=== PATIENT | male | born 1950 | race Caucasian/White ===

== ENCOUNTER 2016-11-22 19:53 | Emergency (ER) | payer BC, OTHER ==
[2016-11-22 20:07] VITALS: BP 155/66; PULSE 101; TEMP 99; BMI 35.4
[2016-11-22] MEDS ORDERED: SODIUM CHLORIDE 1,000 ML IV STA (20:41)
[2016-11-22] MEDS ORDERED: morphine CARPU-JECT 4 MG/1 ML DISP.SYRIN IVPUSH ONE (20:41)
--- NOTE | 2016-11-22 20:41 | PDOC ---
History of Present Illness - History of Present Illness Initial Comments: 11/22/16 20:47 The patient is a 66 year old male, with a significant past medical history of, who presents to the emergency department with rectal pain and nausea for about two days. The patient reports he has not eaten in 1.5 days and has been avoiding moving bowels because of his rectal pain. He denies blood per rectum. He denies use of laxatives or stool softeners. The patient states he is, however , passing gas from below. He states he feels nauseous but denies emesis. He denies chest pain, shortness of breath, headache and dizziness. He denies fever, chills, vomit, diarrhea and constipation. He denies dysuria, frequency, urgency and hematuria. Allergies: NKDA Past surgical history: naval hernia repair Social history: Pt denies toxic habits <Rupali Armas - Last Filed: 11/22/16 21:33> <Ratna Khan - Last Filed: 11/23/16 03:55> <Khadra Crawford - Last Filed: 11/25/16 08:42> - General Chief Complaint: Pain Stated Complaint: PAIN Time Seen by Provider: 11/22/16 20:18 Past History <Rupali Armas - Last Filed: 11/22/16 21:33> <Ratna Khan - Last Filed: 11/23/16 03:55> - Past Medical History Diabetes: Yes HTN: Yes Hypercholesterolemia: Yes - Surgical History Abdominal Surgery: Yes (Hernia) - Suicide/Smoking/Psychosocial Hx Smoking History: Never smoked Have you smoked in the past 12 months: No Information on smoking cessation initiated: No Hx Alcohol Use: No Drug/Substance Use Hx: No Substance Use Type: None <Khadra Crawford - Last Filed: 11/25/16 08:42> - Past Medical History Allergies/Adverse Reactions: Allergies Allergy/AdvReac Type Severity Reaction Status Date / Time No Known Allergies Allergy Verified 11/24/16 09:40 Home Medications: Ambulatory Orders Aspirin [ASA -] 81 mg PO DAILY 11/22/16 Canagliflozin [Invokana] 300 mg PO DAILY 11/22/16 Diclofenac Sodium [Diclozor] 100 mg PO TID 11/22/16 Dulaglutide [Trulicity] 0.75 units SQ WEEKLY 11/22/16 Insulin Aspart Prot/Insuln Asp [Novolog Mix 70-30 Flexpen Syrn] 25 units SQ TID 11/22/16 Quinapril HCl [Accupril -] 10 mg PO DAILY 11/22/16 Rosuvastatin Calcium [Crestor] 40 mg PO DAILY 11/22/16 Amoxicillin/Potassium Clav [Augmentin 875-125 Tablet] 1 each PO BID #14 tablet 11/23/16 Docusate Sodium [Colace -] 100 mg PO BID #14 capsule 11/23/16 Oxycodone HCl/Acetaminophen [Percocet 5/325 -] 1 tab PO Q6H #20 tablet MDD 4 11/01 Review of Systems - Review of Systems Able to Perform ROS?: Yes Comments:: 11/22/16 20:47 GENERAL/CONSTITUTIONAL: No fever or chills. No weakness. HEAD, EYES, EARS, NOSE AND THROAT: No change in vision. No ear pain or discharge. No sore throat. CARDIOVASCULAR: No chest pain or shortness of breath. RESPIRATORY: No cough, wheezing, or hemoptysis. GASTROINTESTINAL: (+) rectal pain, nausea, No vomiting, diarrhea or constipation. GENITOURINARY: No dysuria, frequency, or change in urination. MUSCULOSKELETAL: No joint or muscle swelling or pain. No neck or back pain. SKIN: No rash NEUROLOGIC: No headache, vertigo, loss of consciousness, or change in strength/ sensation. ENDOCRINE: No increased thirst. No abnormal weight change. HEMATOLOGIC/LYMPHATIC: No anemia, easy bleeding, or history of blood clots. ALLERGIC/IMMUNOLOGIC: No hives or skin allergy. <Rupali Armas - Last Filed: 11/22/16 21:33> *Physical Exam - Vital Signs Last Vital Signs Temp Pulse Resp BP Pulse Ox 99.0 F 101 H 20 155/66 98 11/22/16 20:04 11/22/16 20:04 11/22/16 20:04 11/22/16 20:04 11/22/16 20:04 <Rupali Armas - Last Filed: 11/22/16 21:33> - Vital Signs Last Vital Signs Temp Pulse Resp BP Pulse Ox 99.0 F 101 H 20 155/66 98 11/22/16 20:04 11/22/16 20:04 11/22/16 20:04 11/22/16 20:04 11/22/16 20:04 <Ratna chaudhry - Last Filed: 11/23/16 03:55> - Vital Signs Last Vital Signs Temp Pulse Resp BP Pulse Ox 99.0 F 101 H 20 155/66 98 11/22/16 20:04 11/22/16 20:04 11/22/16 20:04 11/22/16 20:04 11/22/16 20:04 - Physical Exam Comments: GENERAL: Awake, alert, and fully oriented, in no acute distress HEAD: No signs of trauma EYES: PERRLA, EOMI, sclera anicteric, conjunctiva clear ENT: Auricles normal inspection, hearing grossly normal, nares patent, oropharynx clear without exudates. Moist mucosa NECK: Normal ROM, supple, no lymphadenopathy, JVD, or masses LUNGS: Breath sounds equal, clear to auscultation bilaterally. No wheezes, and no crackles HEART: Regular rate and rhythm, normal S1 and S2, no murmurs, rubs or gallops ABDOMEN: Soft, nontender, normoactive bowel sounds. No guarding, no rebound. No masses EXTREMITIES: Normal range of motion, no edema. No clubbing or cyanosis. No cords, erythema, or tenderness NEUROLOGICAL: Cranial nerves II through XII grossly intact. Normal speech, normal gait SKIN: Warm, Dry, normal turgor, no rashes or lesions noted. RECTAL: +Induration at the 1 o'clock position, with tenderness and fluctuant lesion. <Khadra Crawford - Last Filed: 11/25/16 08:42> ED Treatment Course - LABORATORY CBC & Chemistry Diagram: 11/22/16 21:20 11/22/16 21:20 - ADDITIONAL ORDERS Additional order review: Laboratory Results 11/22/16 11/22/16 11/22/16 21:20 21:20 21:20 PT with INR 14.40 H INR 1.30 H Sodium 135 L Potassium 4.5 Chloride 104 Carbon Dioxide 23 Anion Gap 8 BUN 22 H Creatinine 0.9 Creat Clearance w eGFR > 60 Random Glucose 180 H Calcium 8.6 Total Bilirubin 0.9 AST 27 ALT 35 Alkaline Phosphatase 67 Total Protein 7.0 Albumin 3.5 Blood Type A POSITIVE Antibody Screen Negative 11/22/16 21:20 RBC 4.56 MCV 87.8 MCHC 33.3 RDW 13.6 MPV 8.5 Neutrophils % 78.8 Lymphocytes % 12.9 Monocytes % 7.7 Eosinophils % 0.3 Basophils % 0.3 - Medications Given in the ED: ED Medications Discontinued Medications Generic Name Dose Route Start Last Admin Trade Name Charles PRN Reason Stop Dose Admin Sodium Chloride 1,000 mls @ 1,000 mls/hr 11/22/16 20:41 11/22/16 21:30 Normal Saline - IV 11/22/16 21:40 1,000 mls/hr ASDIR STA Administration Ampicillin Sodium/Sulbactam 100 mls @ 200 mls/hr 11/23/16 01:52 11/23/16 02:26 Sodium 3 gm/ Sodium Chloride IVPB 11/23/16 02:21 200 mls/hr ONCE ONE Administration Morphine Sulfate 4 mg 11/22/16 20:41 11/22/16 21:30 Morphine Injection - IVPUSH 11/22/16 20:42 4 mg ONCE ONE Administration <Ratna Khan - Last Filed: 11/23/16 03:55> - LABORATORY CBC & Chemistry Diagram: 11/22/16 21:20 11/22/16 21:20 <Khadra Crawford - Last Filed: 11/25/16 08:42> Medical Decision Making - Medical Decision Making 11/22/16 21:33 Dr. Sanon, general surgery, was consulted and presents at patient bedside. <Rupali Armas - Last Filed: 11/22/16 21:33> - Medical Decision Making 11/23/16 02:01 Pt endorsed to at shift change. Dr. Sanon has been consulted, she is currently in OR with another case and will return shortly. Abx have been ordered. <Khadra Crawford - Last Filed: 11/25/16 08:42> *DC/Admit/Observation/Transfer - Attestations Scribe Attestion: 11/22/16 20:48 Documentation prepared by Rupali Armas, acting as medical office secretary for Khadra Crawford MD, <Rupali Armas - Last Filed: 11/22/16 21:33> - Discharge Dispostion Admit: No <Ratna Khan - Last Filed: 11/23/16 03:55> <Khadra Crawford - Last Filed: 11/25/16 08:42> Diagnosis at time of Disposition: Perirectal abscess - Discharge Dispostion Disposition: HOME Condition at time of disposition: Improved - Prescriptions Prescriptions: Amoxicillin/Potassium Clav [Augmentin 875-125 Tablet] 1 each PO BID #14 tablet Docusate Sodium [Colace -] 100 mg PO BID #14 capsule Oxycodone HCl/Acetaminophen [Percocet 5/325 -] 1 tab PO Q6H #20 tablet MDD 4 - Referrals Referrals: Sylwia Schofield MD [Primary Care Provider] - - Patient Instructions Printed Discharge Instructions: DI for Anal Abscess Additional Instructions: Follow up with Dr. Sanon in 1 week. Call for an appointment. [phone] Avoid aspirin for 1 week. Return to the ER on Wednesday morning for a dressing change. After that you can start Sitz baths with warm soapy water 3 times per day. After the dressing change is done, you can start taking colace to soften stools.
[2016-11-22] MEDS ORDERED: morphine CARPU-JECT 10 MG/1 ML DISP.SYRIN ONE (21:24)
[2016-11-22 21:55] LABS: BASOPHIL 0.3 % (0-2.0); EOSINOPHIL 0.3 % (0-4.5); MCH 29.2 pg (25.7-33.7); MCHC 33.3 g/dl (32.0-35.9); MEAN CELL VOLUME 87.8 fl (80-96); MEAN PLT VOLUME 8.5 fl (7.5-11.1); NEUTROPHILS 78.8 % (42.8-82.8); PLATELET COUNT 174 K/MM3 (134-434); RDW 13.6 % (11.9-15.9); WHITE BLOOD COUNT 11.1 K/mm3 (4.0-10.0)
[2016-11-22 22:09] LABS: INR 1.3 (0.82-1.09); PROTHROMBIN TIME (PATIENT) 14.4 SEC (9.98-11.88)
[2016-11-22 22:26] LABS: ALBUMIN 3.5 g/dl (3.4-5.0); ALK PHOS 67 U/L (45-117); ANION GAP 8 (8-16); BILIRUBIN,TOTAL 0.9 mg/dL (0.2-1.0); CALCIUM 8.6 mg/dL (8.5-10.1); CO2 23 mmol/L (21-32); CREATININE 0.9 mg/dL (0.7-1.3); GLUCOSE,RANDOM 180 mg/dL (74-106); SGOT/AST 27 U/L (15-37); SGPT/ALT 35 U/L (12-78)
[2016-11-23] MEDS ORDERED: AMPICILLIN NA/SULBACTAM NA 3 GM in SODIUM CHLORIDE 100 ML IVPB ONE (01:52)
[2016-11-23] MEDS ORDERED: LIDOCAINE HCL 1%, 10 MG/ML (20ML VIAL) ONE (02:44)
[2016-11-23] MEDS ORDERED: LIDOCAINE 1%/EPI 1:100000 (20 ML MULTI DOSE VIAL) ONE (02:49)
--- NOTE | 2016-11-23 04:34 | CONSULT ---
Consult Consult Specialty:: General Surgery Referred by:: Dr. Crawford Reason for Consultation:: perianal abscess - History of Present Illness Chief Complaint: left posterior perianal pain and swelling, constipation History of Present Illness: 66yo M with HTN, HLD, DM on baby aspirin daily (last on Sat night), began noting anorectal pain 3 days ago, which got "very bad" 2 days ago. It hurts to push, so he has been reluctant to go to the bathroom, and does describe a history of constipation. No diarrhea, no f/c, no n/v, In ER, wbc 11, afebrile, gluc 180. He has difficulty sitting and walking because of the pain. Even urinating causes some perianal pain, secondary to pushing or straining at times. Surgery is consulted for perianal abscess. - History Source History Provided By: Patient Limitations to Obtaining History: No Limitations - Past Medical History Cardio/Vascular: Yes: HTN, Hyperlipdemia Gastrointestinal: Yes: Constipation Endocrine: Yes: Diabetes Mellitus - Past Surgical History Past Surgical History: Yes: Hernia Repair (umbilical) - Alcohol/Substance Use Hx Alcohol Use: No History of Substance Use: reports: None - Smoking History Smoking history: Never smoked Have you smoked in the past 12 months: No - Social History Usual Living Arrangement: With Spouse Occupation: lumber stacker driver Home Medications - Allergies Allergies/Adverse Reactions: Allergies Allergy/AdvReac Type Severity Reaction Status Date / Time No Known Allergies Allergy Verified 11/22/16 20:03 - Home Medications Home Medications: Ambulatory Orders Aspirin [ASA -] 81 mg PO DAILY 11/22/16 Canagliflozin [Invokana] 300 mg PO DAILY 11/22/16 Diclofenac Sodium [Diclozor] 100 mg PO TID 11/22/16 Dulaglutide [Trulicity] 0.75 units SQ WEEKLY 11/22/16 Insulin Aspart Prot/Insuln Asp [Novolog Mix 70-30 Flexpen Syrn] 25 units SQ TID 11/22/16 Quinapril HCl [Accupril -] 10 mg PO DAILY 11/22/16 Rosuvastatin Calcium [Crestor] 40 mg PO DAILY 11/22/16 Amoxicillin/Potassium Clav [Augmentin 875-125 Tablet] 1 each PO BID #14 tablet 11/23/16 Docusate Sodium [Colace -] 100 mg PO BID #14 capsule 11/23/16 Oxycodone HCl/Acetaminophen [Percocet 5/325 -] 1 tab PO Q6H #20 tablet MDD 4 11/01 Family Disease History - Family Disease History Family History: Unremarkable Review of Systems - Review of Systems Constitutional: denies: Chills, Fever Eyes: denies: Blurred Vision, Recent Change in Vision HENT: denies: Difficult Swallowing, Throat Pain Neck: denies: Swollen Glands, Tenderness Cardiovascular: denies: Chest Pain, Palpitations Respiratory: denies: Cough, SOB Gastrointestinal: reports: Constipation. denies: Abdominal Pain, Diarrhea, Nausea, Vomiting Genitourinary: reports: Other (hurts anorectum when he pushes to urinate (with hpi)). denies: Burning, Dysuria Musculoskeletal: denies: Back Pain, Joint Pain Integumentary: denies: Change in Color, Rash Neurological: denies: Dizziness, Headache Physical Exam Vital Signs: Vital Signs Temperature 99.0 F 11/22/16 20:04 Pulse Rate 101 H 11/22/16 20:04 Respiratory Rate 20 11/22/16 20:04 Blood Pressure 155/66 11/22/16 20:04 O2 Sat by Pulse Oximetry (%) 98 11/22/16 20:04 Constitutional: Yes: Well Nourished, Calm, Mild Distress, Obese Eyes: Yes: Conjunctiva Clear, EOM Intact HENT: Yes: Atraumatic, Normocephalic Neck: Yes: Supple, Trachea Midline Cardiovascular: Yes: Regular Rate and Rhythm, Murmur (systolic) Respiratory: Yes: Regular, CTA Bilaterally Gastrointestinal: Yes: Soft, Abdomen, Obese, Hernia (periumbilical/recurrent). No: Tenderness ...Rectal Exam: Yes: Inflammation (just left of posterior midline is radial swelling, tender, pink, soft/fluctuant; soft brown stool in anorectum, tender internally secondary to abscess, no purulence), Sphincter Tone Normal. No: Hemorrhoids/External Renal/: No: CVA Tenderness - Left, CVA Tenderness - Right Musculoskeletal: No: Joint Stiffness, Joint Swelling Extremities: No: Cool, Cyanosis Edema: No Peripheral Pulses WNL: Yes Integumentary: No: Jaundice, Rash Neurological: Yes: Alert, Oriented Psychiatric: Yes: Alert, Oriented Labs: CBC, BMP 11/22/16 21:20 11/22/16 21:20 CMP Sodium 135 mmol/L (136-145) L 11/22/16 21:20 Potassium 4.5 mmol/L (3.5-5.1) 11/22/16 21:20 Chloride 104 mmol/L (98-107) 11/22/16 21:20 Carbon Dioxide 23 mmol/L (21-32) 11/22/16 21:20 Anion Gap 8 (8-16) 11/22/16 21:20 BUN 22 mg/dL (7-18) H 11/22/16 21:20 Creatinine 0.9 mg/dL (0.7-1.3) 11/22/16 21:20 Creat Clearance w eGFR > 60 (>60) 11/22/16 21:20 Random Glucose 180 mg/dL (74-106) H 11/22/16 21:20 Calcium 8.6 mg/dL (8.5-10.1) 11/22/16 21:20 Total Bilirubin 0.9 mg/dL (0.2-1.0) 11/22/16 21:20 AST 27 U/L (15-37) 11/22/16 21:20 ALT 35 U/L (12-78) 11/22/16 21:20 Alkaline Phosphatase 67 U/L (45-117) 11/22/16 21:20 Total Protein 7.0 g/dl (6.4-8.2) 11/22/16 21:20 Albumin 3.5 g/dl (3.4-5.0) 11/22/16 21:20 INR, PTT INR 1.30 (0.82-1.09) H 11/22/16 21:20 Problem List - Problems (1) Perianal abscess Assessment/Plan: left posterior perianal abscess wbc 11, afeb, ER gave fluids and Unasyn Discussed with patient risks, benefits and alternatives of incision and drainage of perianal abscess, including but not limited to bleeding, infection, fistula; alternatives include antibiotics, delayed or no surgery - risks of this include failure of nonoperative therapy, sepsis, recurrence, fistula. Patient signed informed consent for procedure. I&D performed under local in ER - see separate note Pus cultured Pt to return to ER Wednesday morning for wound check and packing removal Then to start sitz baths tid and after each BM - warm soapy water, keep wound edges open with fingertips ER to Rx Augmentin x7d and pain meds prn Encouraged stool softener and laxatives prn, especially while using narcotics Pt given my card - to call and follow up Saturday 12/02 Thank you for the opportunity to participate in the care of this patient. Code(s): K61.0 - ANAL ABSCESS (2) Diabetes mellitus type 2, controlled, with complications Code(s): E11.8 - TYPE 2 DIABETES MELLITUS WITH UNSPECIFIED COMPLICATIONS Qualifiers: Diabetes mellitus half-way insulin use: with half-way use Qualified Code(s): E11.8 - Type 2 diabetes mellitus with unspecified complications; E11.8 - Type 2 diabetes mellitus with unspecified complications; E11.8 - Type 2 diabetes mellitus with unspecified complications; E11.8 - Type 2 diabetes mellitus with unspecified complications; Z79.4 - equipment [employer] (current) use of insulin; Z79.4 - equipment [employer] (current) use of insulin; Z79.4 - equipment [employer] ( current) use of insulin; Z79.4 - [facility] (current) use of insulin (3) Hypertension Code(s): I10 - ESSENTIAL (PRIMARY) HYPERTENSION Qualifiers: Hypertension type: essential hypertension Qualified Code(s): I10 - Essential (primary) hypertension; I10 - Essential (primary) hypertension; I10 - Essential (primary) hypertension (4) Hyperlipidemia Code(s): E78.5 - HYPERLIPIDEMIA, UNSPECIFIED Qualifiers: Hyperlipidemia type: unspecified Qualified Code(s): E78.5 - Hyperlipidemia, unspecified; E78.5 - Hyperlipidemia, unspecified; E78.5 - Hyperlipidemia, unspecified
--- NOTE | 2016-11-23 05:12 | PROC ---
Incision and Drainage Indication/Location: left posterior perianal abscess Risks and Benefits Explained: Yes Consent on Chart: No (verbal consent given) Betadine cleansed: Yes Anesthesia: 1% Lidocaine w/ Epi (16ml) Blade Size: 15 Drainage: pus - culture sent Irrigated with Normal Saline: No (irrigated with local anesthetic) Iodinated Packin/4 in Plain packing: No Sterile Dressing Applied: Yes - Remarks Remarks: radial incision made over most fluctuant area close to anus with eruption of pus - culture sent site cleansed with gauze. loculations manually - wound cavity tracks deep up against anus, likely intersphincteric, but no fistula palpable through anorectal wall. small ellipse of skin excised to facilitate cleansing and keeping open until healed. packed with 1/4" iodoform, covered with gauze and tape.
== END 2016-11-23 04:15 | disposition home or self-care (01) ==
LOC: JER 19:53
PROC: 0D9Q0ZZ Drainage of Anus, Open Approach (ICD-10-PCS; principal; 2016-11-22)
PROC: 3E03329 Introduction of Other Anti-infective into Peripheral Vein, Percutaneous Approach (ICD-10-PCS; 2016-11-22)
PROC: 3E0337Z Introduction of Electrolytic and Water Balance Substance into Peripheral Vein, Percutaneous Approach (ICD-10-PCS; 2016-11-22)
DX: K61.0 Anal abscess (principal); E11.8 Type 2 diabetes mellitus with unspecified complications; I10 Essential (primary) hypertension; E78.5 Hyperlipidemia, unspecified; Z79.82 Long term (current) use of aspirin; Z79.4 Long term (current) use of insulin
CPT/HCPCS: 36415; 80053; 85025; 85610; 86850; 86900; 86901; 87070; 87076; 87077; 87186; 87205; 99284-25

== ENCOUNTER 2016-11-24 09:35 | Emergency (ER) | payer BC ==
[2016-11-24 09:42] VITALS: BP 113/72; PULSE 81; TEMP 98.3; BMI 35.6
--- NOTE | 2016-11-24 11:16 | PDOC ---
Suture Removal/Wound Check HPI - History of Present Illness Chief Complaint: Revisit,Wound Recheck Stated Complaint: REVISIT, FOLLOW UP Time Seen by Provider: 11/24/16 10:32 History Source: Yes: Patient Exam Limitations: Yes: No Limitations Treated at: [facility] - Previous ED Treatment Type of procedure performed on last visit: Yes: I&D of Abscess - Onset of Previous Treatment Comment:: 11/24/16 11:04 Patient was seen here in the emergency department 2 days ago and treated/ incised and drained for a large perirectal abscess by Dr. Karlee GREEN. States has continued with pain but is mildly improving. Denies fever, denies any problems with bowel movements that is using Dulcolax and Colace. Is taking pain medications and antibiotics. 11/24/16 11:26 Past History - Travel Traveled outside of the country in the last 30 days: No Close contact w/someone who was outside of country & ill: No - Past Medical History Allergies/Adverse Reactions: Allergies Allergy/AdvReac Type Severity Reaction Status Date / Time No Known Allergies Allergy Verified 11/24/16 09:40 Home Medications: Ambulatory Orders Aspirin [ASA -] 81 mg PO DAILY 11/22/16 Canagliflozin [Invokana] 300 mg PO DAILY 11/22/16 Diclofenac Sodium [Diclozor] 100 mg PO TID 11/22/16 Dulaglutide [Trulicity] 0.75 units SQ WEEKLY 11/22/16 Insulin Aspart Prot/Insuln Asp [Novolog Mix 70-30 Flexpen Syrn] 25 units SQ TID 11/22/16 Quinapril HCl [Accupril -] 10 mg PO DAILY 11/22/16 Rosuvastatin Calcium [Crestor] 40 mg PO DAILY 11/22/16 Amoxicillin/Potassium Clav [Augmentin 875-125 Tablet] 1 each PO BID #14 tablet 11/23/16 Docusate Sodium [Colace -] 100 mg PO BID #14 capsule 11/23/16 Oxycodone HCl/Acetaminophen [Percocet 5/325 -] 1 tab PO Q6H #20 tablet MDD 4 11/01 Diabetes: Yes HTN: Yes Hypercholesterolemia: Yes - Surgical History Abdominal Surgery: Yes (Hernia) - Suicide/Smoking/Psychosocial Hx Smoking History: Never smoked Have you smoked in the past 12 months: No Information on smoking cessation initiated: No Hx Alcohol Use: No Drug/Substance Use Hx: No Substance Use Type: None Suture Removal/Wound Check PE - Physical Exam Laceration/Wound Check Symptoms: reports: None Current Severity Level: None Maximum Severity Level: None Pain Localization: None *Review of Systems - Review of Systems Able to Perform ROS?: Yes Constitutional: Yes: Symptoms Reported, See HPI, Malaise HEENTM: No: Symptoms Reported Respiratory: No: Symptoms reported ABD/GI: Yes: Symptoms Reported, See HPI. No: Diarrhea : No: Symptoms Reported Musculoskeletal: Yes: Symptoms Reported, See HPI All Other Systems: Reviewed and Negative Medical Decision Making - Medical Decision Making 11/24/16 11:22 Packing removal and wound check. Discussed cased with Dr. Sanon who will see patient in one week as planned. With instructions to continue cleaning as directed with isai. 11/24/16 11:25 11/24/16 11:27 *DC/Admit/Observation/Transfer Diagnosis at time of Disposition: Wound check, abscess - Discharge Dispostion Disposition: HOME Condition at time of disposition: Stable Admit: No - Referrals Referrals: Sylwia Schofield MD [Primary Care Provider] - - Patient Instructions Additional Instructions: Keep area clean, sitz baths 3-4 times daily and rinse area well allowing to continue to drain and second intention healing. Patient understands will have follow-up appointment with in 10 days and will continue medications as directed - Post Discharge Activity Forms/Work/School Notes: Back to Work
--- NOTE | 2016-11-27 12:31 | PDOC ---
Patient Follow-up (Call Back) - Post ED Follow - Up Condition at time of discharge: Stable Disposition at time of original discharge: HOME Reason for Call Back: Abnwl. Microbiology (Patient's wound culture show positive Escherichia coli, Escherichia coli #2, and strep group F. Patient was placed on Augmentin initially which was not sensitive to the above organisms. Patient had sensitivity to cephalosporins. Patient ordered for Keflex. Patient made aware and will order picker medication at [facility])
== END 2016-11-24 11:38 | disposition home or self-care (01) ==
LOC: JERFT 09:35
DX: Z48.01 Encounter for change or removal of surgical wound dressing (principal)
CPT/HCPCS: 99281-25

== ENCOUNTER 2019-01-18 10:00 | Day surgery (SDC) | payer OTHER, BC ==
[2019-01-17 18:26] VITALS: BMI 37.0
[~2019-01-18 10:00] MED LIST: ACETAMINOPHEN 325 MG TABLET (FP) PO PRN
--- NOTE | 2019-01-18 10:40 | EKG ---
Test Reason : Blood Pressure : / mmHG Vent. Rate : 076 BPM Atrial Rate : 076 BPM P-R Int : 194 ms QRS Dur : 142 ms QT Int : 428 ms P-R-T Axes : 023 -33 016 degrees QTc Int : 481 ms NORMAL SINUS RHYTHM LEFT AXIS DEVIATION RIGHT BUNDLE BRANCH BLOCK ABNORMAL ECG WHEN COMPARED WITH ECG OF 05-JAN-2009 15:50, NO SIGNIFICANT CHANGE WAS FOUND Confirmed by ADAM CALLEJAS, ROSEILNE ([id number]) on 01/18/2019 10:40:33 AM Referred By: MCKENZIE KIM Confirmed By:ROSELINE MEDINA MD
[2019-01-18] MEDS ORDERED: KETOROLAC TROMETHAMINE 0.5% EYE DROP 1 DROP DROPS ONE (10:53)
[2019-01-18] MEDS ORDERED: PHENYLEPHRINE 2.5% OPHTH SOLN 15 ML BOTTLE ONE (10:53)
[2019-01-18] MEDS ORDERED: OFLOXACIN 0.3% OPHTHALMIC SOLUTION 5 ML BOTTLE ONE (10:53)
[2019-01-18] MEDS ORDERED: CYCLOPENTOLATE HCL 1% OPHTH SOLN 2 ML BOTTLE ONE (10:53)
[2019-01-18] MEDS ORDERED: TROPICAMIDE 1% OPHTH SOLN 15 ML BOTTLE ONE (10:53)
[2019-01-18 10:56] VITALS: TEMP 98.3
[2019-01-18] MEDS: OFLOXACIN 0.3% OPHTHALMIC SOLUTION 5 ML BOTTLE OP SCH ×3 (11:00→11:10)
[2019-01-18] MEDS: CYCLOPENTOLATE HCL 1% OPHTH SOLN 2 ML BOTTLE OP SCH ×3 (11:00→11:10)
[2019-01-18] MEDS: TROPICAMIDE 1% OPHTH SOLN 15 ML BOTTLE OP SCH ×3 (11:00→11:10)
[2019-01-18] MEDS: PHENYLEPHRINE 2.5% OPHTH SOLN 15 ML BOTTLE OP SCH ×3 (11:00→11:10)
[2019-01-18] MEDS: KETOROLAC TROMETHAMINE 0.5% EYE DROP 1 DROP DROPS OP SCH ×3 (11:00→11:10)
[2019-01-18] MEDS ORDERED: PROPOFOL 20 ML ONE (13:01)
[2019-01-18] MEDS ORDERED: LIDOCAINE HCL/PF 1% SDV 5ML VIAL ONE (13:02)
[2019-01-18] MEDS ORDERED: BUPIVACAINE HCL/PF 0.75% 10 ML VIAL NR ONE (13:10)
[2019-01-18] MEDS ORDERED: LIDOCAINE HCL/PF 2% SDV 5ML VIAL INF ONE (13:10)
[2019-01-18] MEDS ORDERED: POVIDONE-IODINE 5% OPHTHALMIC PREP 30 ML SOLUTION OS ONE (13:13)
[2019-01-18] MEDS ORDERED: TRYPAN BLUE 0.5 ML DISP.SYRIN ONE (13:20)
[2019-01-18] MEDS ORDERED: BSS (NA/CA/MG/K) BALANCED SALT SOLUTION OPHTH SOLN 15 ML BOTTLE OS ONE (13:21)
[2019-01-18] MEDS ORDERED: CHONDROITIN SU A/HYALUR SOD 1 KIT IO ONE (13:21)
[2019-01-18] MEDS ORDERED: LIDOCAINE HCL 1% PRESERVATIVE FREE - 30ML VIAL IO ONE (13:21)
[2019-01-18] MEDS ORDERED: EPINEPHrine/PF 1 MG/1 ML (1:1,000) AMPULE SQ ONE (13:27)
[2019-01-18] MEDS ORDERED: EPINEPHrine/PF 1 MG/1 ML (1:1,000) AMPULE ONE (13:51)
[2019-01-18] MEDS ORDERED: BUPIVACAINE HCL/PF 0.75% 10 ML VIAL ONE (13:51)
[2019-01-18] MEDS ORDERED: LIDOCAINE HCL/PF 2% SDV 5ML VIAL ONE (13:51)
[2019-01-18] MEDS ORDERED: CHONDROITIN SU A/HYALUR SOD 1 KIT ONE (13:54)
[2019-01-18] MEDS ORDERED: NEO/POLYMYX B SULF/DEXAMETH OPHTHALMIC OINTMENT 3.5 GM ONE (14:02)
[2019-01-18 16:02] VITALS: BP 122/72; PULSE 82
--- NOTE | 2019-01-18 18:08 | SPEC ---
DATE OF OPERATION: DATE OF DICTATION: 01/18/2019 OPERATION: Phacoemulsification of left cataract with posterior chamber intraocular lens implantation, lens used [id number], 21.0 Diopter, Serial No. [id number]. PREOPERATIVE DIAGNOSIS: Cataract left eye. POSTOPERATIVE DIAGNOSIS: Cataract left eye. SURGEON: Mckenzie Kim M.D. ANESTHESIA: Peribulbar/Modified Van Lint/MAC. COMPLICATIONS: None. PROCEDURE: The patient was brought to the operating room and correctly identified along with the operative site and a correct intraocular lens key. The patient was then given a peribulbar block under sedation with 5 mL of a 1:1 mixture of 2% Lidocaine and 0.5% Bupivacaine. Two to 3 mL of the same mixture was given as a modified Van Lint block. The eye was then prepped and draped in the usual sterile fashion including 5% Betadine solution in the conjunctival sac and an eyelid drape. An eyelid speculum was then placed into the eye. A paracentesis port was created. Viscoelastic was injected to inflate the anterior chamber. A temporal clear corneal wound was created. A continuous circular capsulorrhexis was performed. The nucleus was then hydro-dissected and removed phacoemulsification via the [id number] approach. The remaining cortical material was irrigated and aspirated from the eye. Viscoelastic was injected to inflate the capsular bag. The lens was injected into the capsular bag. Viscoelastic was then irrigated and aspirated from the eye. The intraocular lens was noted to be well centered and covered by the anterior capsular border. All wounds were found to be watertight. Topical Vancomycin was given. The eye patch and shield were placed. The patient was discharged from the operating room in stable condition. MCKENZIE KIM M.D. ISATU/[id number]
== END 2019-01-18 14:43 | disposition home or self-care (01) ==
LOC: JASU-SURG 10:00
PROVIDERS: ATTEND Ophthalmology
PROC: 08RK3JZ Replacement of Left Lens with Synthetic Substitute, Percutaneous Approach (ICD-10-PCS; principal; 2019-01-18 12:00)
DX: H26.9 Unspecified cataract (principal); I10 Essential (primary) hypertension; E11.9 Type 2 diabetes mellitus without complications
CPT/HCPCS: 82962; 93005; 93010

== ENCOUNTER 2019-09-20 05:03 | Day surgery (SDC) | payer OTHER, BC ==
[2019-09-19 12:34] VITALS: BMI 36.5
[~2019-09-20 05:03] MED LIST changes: +TROPICAMIDE 1% OPHTH SOLN 15 ML BOTTLE OP SCH
[2019-09-20] MEDS ORDERED: CHONDROITIN SU A/HYALUR SOD 1 KIT ONE (07:12)
[2019-09-20] MEDS ORDERED: LIDOCAINE HCL/PF 2% SDV 5ML VIAL ONE ×2 (07:25→10:19)
[2019-09-20] MEDS ORDERED: LIDOCAINE HCL/PF 1% SDV 5ML VIAL ONE (07:25)
[2019-09-20] MEDS ORDERED: BUPIVACAINE HCL/PF 0.75% 10 ML VIAL ONE (07:25)
[2019-09-20] MEDS ORDERED: TETRACAINE 0.5% OPHTH SOLN 2 ML BOTTLE ONE (07:26)
[2019-09-20] MEDS ORDERED: BSS (NA/CA/MG/K) BALANCED SALT SOLUTION OPHTH SOLN 15 ML BOTTLE ONE (07:26)
[2019-09-20] MEDS ORDERED: POVIDONE-IODINE 5% OPHTHALMIC PREP 30 ML SOLUTION ONE (07:26)
[2019-09-20] MEDS ORDERED: KETOROLAC TROMETHAMINE 0.5% EYE DROP 1 DROP DROPS ONE (08:08)
[2019-09-20] MEDS ORDERED: OFLOXACIN 0.3% OPHTHALMIC SOLUTION 5 ML BOTTLE ONE (08:08)
[2019-09-20] MEDS ORDERED: TROPICAMIDE 1% OPHTH SOLN 15 ML BOTTLE ONE ×2 (08:08→08:11)
[2019-09-20] MEDS ORDERED: CYCLOPENTOLATE HCL 1% OPHTH SOLN 2 ML BOTTLE ONE (08:09)
[2019-09-20] MEDS: CYCLOPENTOLATE HCL 1% OPHTH SOLN 2 ML BOTTLE OP SCH ×3 (08:20→08:30)
[2019-09-20] MEDS: KETOROLAC TROMETHAMINE 0.5% EYE DROP 1 DROP DROPS OP SCH ×3 (08:20→08:30)
[2019-09-20] MEDS: OFLOXACIN 0.3% OPHTHALMIC SOLUTION 5 ML BOTTLE OP SCH ×3 (08:20→08:30)
[2019-09-20] MEDS: PHENYLEPHRINE 2.5% OPHTH SOLN 15 ML BOTTLE OP SCH ×3 (08:20→08:30)
[2019-09-20] MEDS ORDERED: MIDAZOLAM HCL 2 MG/2 ML SINGLE DOSE VIAL ONE (10:18)
[2019-09-20] MEDS ORDERED: PROPOFOL 20 ML ONE (10:19)
[2019-09-20] MEDS ORDERED: TETRACAINE 0.5% OPHTH SOLN 2 ML BOTTLE TP ONE (10:28)
[2019-09-20] MEDS ORDERED: POVIDONE-IODINE 5% OPHTHALMIC PREP 30 ML SOLUTION OD ONE (10:31)
[2019-09-20] MEDS ORDERED: LIDOCAINE HCL 1% PRESERVATIVE FREE - 30ML VIAL IO ONE (10:41)
[2019-09-20] MEDS ORDERED: CHONDROITIN SU A/HYALUR SOD 1 KIT IO ONE (10:41)
[2019-09-20] MEDS ORDERED: BSS (NA/CA/MG/K) BALANCED SALT SOLUTION OPHTH SOLN 15 ML BOTTLE OD ONE (10:41)
[2019-09-20] MEDS ORDERED: EPINEPHrine/PF 1 MG/1 ML (1:1,000) AMPULE SQ ONE (10:46)
[2019-09-20 11:21] VITALS: TEMP 97.3
[2019-09-20 11:50] VITALS: BP 128/63; PULSE 65
--- NOTE | 2019-09-20 12:47 | SPEC ---
DATE OF OPERATION: 09/20/2019 OPERATION: Phacoemulsification with posterior chamber intraocular lens implantation, right eye. Lens used [id number], 21.0 Diopter power, Serial No. [id number]. PREOPERATIVE DIAGNOSIS: Cataract, right eye. POSTOPERATIVE DIAGNOSIS: Cataract, right eye. SURGEON: Mckenzie Kim M.D. ANESTHESIA: Topical MAC. COMPLICATIONS: None. PROCEDURE: The patient was brought to the operating room and correctly identified along with the operative site and the correct intraocular lens key. The patient was then prepped and draped in the usual sterile fashion including 5% Betadine solution in the conjunctival sac and an eyelid drape. An eyelid speculum was then placed in the eye. A paracentesis port was created and approximately 0.5 mL of preservative free Lidocaine was then injected into the eye. Viscoelastic was then injected to inflate the anterior chamber. A temporal clear corneal wound was created. A continuous circular capsulorrhexis was performed. The nucleus was then hydrodissected with BSS and removed with phacoemulsification. The remaining cortical material was irrigated and aspirated. Viscoelastic was injected to inflate the capsular bag and the intraocular lens was then implanted into the capsular bag. The remaining Viscoelastic was irrigated and aspirated from the eye. The IOL was noted to be well centered and completely covered by the anterior capsulorrhexis. Topical vancomycin was placed and the eye patched and shielded. All wounds were tested and found to be watertight. No suture was placed. The eye was then shielded. The patient was then discharged from the operating room in stable condition. MCKENZIE KIM M.D. [id number]
== END 2019-09-20 11:51 | disposition home or self-care (01) ==
LOC: JASU-SURG 05:03
PROVIDERS: ATTEND Ophthalmology
PROC: 08RJ3JZ Replacement of Right Lens with Synthetic Substitute, Percutaneous Approach (ICD-10-PCS; principal; 2019-09-20 10:00)
DX: H26.9 Unspecified cataract (principal); I10 Essential (primary) hypertension; E11.9 Type 2 diabetes mellitus without complications
CPT/HCPCS: 82962

== ENCOUNTER 2020-03-02 09:41 | Emergency (ER) | payer OTHER, BC ==
[2020-03-02 10:02] VITALS: BMI 36.6
[2020-03-02] MEDS ORDERED: CASIRIVIMAB (REGN10933) 1,200 MG, IMDEVIMAB (REGN10987) 1,200 MG in SODIUM CHLORIDE 230 ML IVPB ONE (10:04)
[2020-03-02] MEDS ORDERED: guaiFENesin/CODEINE 10 ML UNIT-DOSE CUPS PO ONE (10:20)
[2020-03-02 11:09] LABS: HEMATOCRIT 37.3 % (35.4-49); HEMOGLOBIN 12.6 GM/dL (11.7-16.9); MCHC 33.9 g/dl (32.0-35.9); MEAN CELL VOLUME 88.6 fl (80-96); PLATELET COUNT 130 K/MM3 (134-434); RBC 4.21 M/mm3 (4.00-5.60); RDW 13.8 % (11.9-15.9); WHITE BLOOD COUNT 4.5 K/mm3 (4.0-10.0)
[2020-03-02 11:33] LABS: POTASSIUM 4.5 mmol/L (3.5-5.1)
[2020-03-02 11:34] LABS: BLOOD UREA NITROGEN 13.4 mg/dL (7-18); CALCIUM 8.8 mg/dL (8.5-10.1)
[2020-03-02] MEDS ORDERED: guaiFENesin/CODEINE 5 ML UNIT-DOSE CUPS PO ONE (13:57)
[2020-03-02 16:10] VITALS: BP 136/56; PULSE 78; TEMP 98
== END 2020-03-02 16:25 | disposition home or self-care (01) ==
LOC: JCOVINFU 09:41 → JER 09:41 → JCOVINFU 16:25
PROC: 3E033NZ Introduction of Analgesics, Hypnotics, Sedatives into Peripheral Vein, Percutaneous Approach (ICD-10-PCS; principal; 2020-03-02)
DX: B34.9 Viral infection, unspecified (principal); U07.1 COVID-19
CPT/HCPCS: 36415; 80048; 85027; 99284-25; M0243; Q0243

== ENCOUNTER 2020-03-05 07:21 | Emergency (ER) | payer OTHER, BC ==
[2020-03-05 07:51] VITALS: BP 131/89; PULSE 75; TEMP 98.2; BMI 34.2
== END 2020-03-05 11:32 | disposition home or self-care (01) ==
LOC: JER 07:21
DX: R06.02 Shortness of breath (principal)
CPT/HCPCS: 36415; 71046-TC-FY; 84484; 93005; 93010; 99285-25

== ENCOUNTER 2023-05-09 03:16 | Observation (INO) | payer OTHER, BC ==
[2023-05-09 03:22] VITALS: BMI 33.8
[2023-05-09 04:42] LABS: INR 1.29 (0.83-1.09); PROTHROMBIN TIME (PATIENT) 14.9 SEC (9.7-13.0)
[2023-05-09 04:44] LABS: ACTIVATED PTT 26.7 SECONDS (25.2-36.5)
[2023-05-09 04:55] LABS: CHOLESTEROL 117 mg/dL (50-200)
[2023-05-09 04:56] LABS: BASO % 0.3 % (0-2.0); EOS % 1.3 % (0-4.5); HEMOGLOBIN 13.4 GM/dL (11.7-16.9); LYMPH % 22.4 % (8-40); MCH 30.6 pg (25.7-33.7); MCHC 34.4 g/dl (32.0-35.9); MEAN PLT VOLUME 8.2 fl (7.5-11.1); MONO % 6.6 % (3.8-10.2); NEUT % 69.4 % (42.8-82.8); PLATELET COUNT 172 10^3/uL (134-434); RBC 4.39 M/mm3 (4.00-5.60); RDW 13.8 % (11.9-15.9); WHITE BLOOD COUNT 10.4 K/mm3 (4.0-10.0)
[2023-05-09 04:57] LABS: HDL CHOLESTEROL 43 mg/dL (40-60); LDL CHOLESTEROL (ONLY SJRH) 63 mg/dL (5-100)
[2023-05-09 05:09] LABS: POTASSIUM 4.3 mmol/L (3.5-5.1)
[2023-05-09 05:11] LABS: BLOOD UREA NITROGEN 21.1 mg/dL (7-18); CALCIUM 8.8 mg/dL (8.5-10.1)
[2023-05-09 05:12] LABS: ALBUMIN 3.4 g/dl (3.4-5.0)
[2023-05-09 05:15] LABS: CREATININE 0.9 mg/dL (0.55-1.3)
[2023-05-09 05:16] LABS: BILIRUBIN,TOTAL 0.6 mg/dL (0.2-1); TOT PROT 6.6 g/dl (6.4-8.2)
[2023-05-09 07:56] LABS: PH,URINE 5.5 (5.0-8.0); URINE APPEARANCE CLEAR; URINE BILIRUBIN NEGATIVE (NEGATIVE); URINE COLOR YELLOW; URINE GLUCOSE (UA) 3+ (NEGATIVE); URINE KETONE NEGATIVE (NEGATIVE); URINE LEUK ESTERASE NEGATIVE (NEGATIVE); URINE NITRITE NEGATIVE (NEGATIVE); URINE PROTEIN NEGATIVE (NEGATIVE); URINE UROBILINOGEN 0.2 mg/dL (0.2-1.0)
[2023-05-09] MEDS ORDERED: ACETAMINOPHEN 325 MG TABLET (FP) PO PRN (09:02)
[2023-05-09] MEDS ORDERED: QUINAPRIL HCL 10 MG TABLET PO SCH (10:00)
[2023-05-09] MEDS ORDERED: DOCUSATE SODIUM 100 MG CAPSULE (FP) PO ONE ×2 (10:30→21:45)
[2023-05-09] MEDS ORDERED: FUROSEMIDE 20 MG TABLET (FP) ONE (10:30)
[2023-05-09] MEDS ORDERED: LISINOPRIL 10 MG TABLET ONE (10:30)
[2023-05-09] MEDS ORDERED: METOPROLOL TARTRATE 50 MG TABLET (FP) ONE (10:30)
[2023-05-09] MEDS ORDERED: ASPIRIN 81 MG CHEWABLE TABLETS ONE (10:30)
[2023-05-09] MEDS ORDERED: HEPARIN NA (PORCINE) 5,000 UNITS/ML 1ML VIAL ONE ×2 (10:31→21:45)
[2023-05-09] MEDS: DOCUSATE SODIUM 100 MG CAPSULE (FP) PO SCH (10:32)
[2023-05-09] MEDS: ASPIRIN 81 MG CHEWABLE TABLETS PO SCH (10:32)
[2023-05-09] MEDS: LISINOPRIL 10 MG TABLET PO SCH (10:32)
[2023-05-09] MEDS: FUROSEMIDE 20 MG TABLET (FP) PO SCH (10:32)
[2023-05-09] MEDS: HEPARIN NA (PORCINE) 5,000 UNITS/ML 1ML VIAL SQ SCH (10:32)
[2023-05-09] MEDS: INSULIN (NOVOLOG MIX 70/30) 100 UNITS/ML MDV SQ SCH (10:38)
[2023-05-09] MEDS ORDERED: INSULIN (NOVOLOG) ASPART 100 UNITS/ML 10ML VIAL ONE ×2 (12:37→12:39)
[2023-05-09] MEDS: INSULIN ASPART SLIDING SCALE (NOVOLOG) 1 VIAL SQ SCH (12:38)
[2023-05-09] MEDS ORDERED: INSULIN (NOVOLOG MIX 70/30) 100 UNITS/ML MDV SQ ONE (17:11)
[2023-05-09] MEDS ORDERED: ROSUVASTATIN CA 20 MG TABLET ONE (21:45)
[2023-05-09] MEDS: ROSUVASTATIN CA 20 MG TABLET PO SCH (21:59)
[2023-05-10 07:34] LABS: BASO % 0.5 % (0-2.0); EOS % 1.7 % (0-4.5); HEMOGLOBIN 13.7 GM/dL (11.7-16.9); LYMPH % 32.1 % (8-40); MCH 30.7 pg (25.7-33.7); MCHC 34.2 g/dl (32.0-35.9); MEAN CELL VOLUME 89.9 fl (80-96); MEAN PLT VOLUME 8.6 fl (7.5-11.1); MONO % 5.8 % (3.8-10.2); NEUT % 59.9 % (42.8-82.8); PLATELET COUNT 189 10^3/uL (134-434); RBC 4.45 M/mm3 (4.00-5.60); RDW 13.9 % (11.9-15.9); WHITE BLOOD COUNT 9.9 K/mm3 (4.0-10.0)
[2023-05-10 08:00] LABS: POTASSIUM 4.4 mmol/L (3.5-5.1)
[2023-05-10 08:02] LABS: ALBUMIN 3.5 g/dl (3.4-5.0); BLOOD UREA NITROGEN 21.1 mg/dL (7-18)
[2023-05-10 08:05] LABS: CREATININE 0.9 mg/dL (0.55-1.3)
[2023-05-10 08:07] LABS: BILIRUBIN,TOTAL 0.8 mg/dL (0.2-1); TOT PROT 6.7 g/dl (6.4-8.2)
[2023-05-10 12:08] VITALS: BP 118/67; PULSE 73; RESP 16; TEMP 97.7
== END 2023-05-10 13:28 | disposition home or self-care (01) ==
LOC: JER 03:16 → JERBED 03:46
PROVIDERS: ADMIT Internal Medicine; ATTEND Internal Medicine
DX: G45.9 Transient cerebral ischemic attack, unspecified (principal); R29.810 Facial weakness; E78.5 Hyperlipidemia, unspecified; E11.9 Type 2 diabetes mellitus without complications; K59.00 Constipation, unspecified; I25.10 Atherosclerotic heart disease of native coronary artery without angina pectoris; I10 Essential (primary) hypertension; Z86.16 Personal history of COVID-19; Z95.1 Presence of aortocoronary bypass graft
CPT/HCPCS: 36415; 70450-TC; 70551-TC; 80053; 80061; 81003; 82962; 83036; 84484; 85025; 85610; 85730; 86850; 86900; 86901; 93005; 93010; 93880-TC; 96372; 99285-25; G0378; J1644